=== PATIENT | female | born 2005 | race Caucasian/White ===

== ENCOUNTER → 2024-05-23 | Outpatient (REF) | payer BC ==
[~2024-05-23] MED LIST: ZOFRAN ODT4 MG PO
== END ==
LOC: ZCOL.LAB 17:58
DX: R19.7 Diarrhea, unspecified (principal)

== ENCOUNTER 2024-05-24 21:41 | Emergency (ER) | payer BC ==
[~2024-05-24] VITALS: Ht 167.6 cm; Wt 63.6 kg
[2024-05-24 21:52] VITALS: TEMP 98.9
[2024-05-24] MEDS ORDERED: Ondansetron 4 MG/2 ML VIAL IV ONE (22:30)
[2024-05-24] MEDS ORDERED: NS 1,000 ML IV ONE (22:30)
[2024-05-24 22:42] LABS: BASO % 0.3 % (0.0-2.0); EOS # 0.3 K/mm3 (0.0-0.7); EOS % 2.9 % (0.0-4.0); GRAN % 78.7 % (42.2-75.2); HEMATOCRIT 42.7 % (35.0-45.0); HEMOGLOBIN 15.1 g/dl (12.0-15.0); LYMPH # 1.1 K/mm3 (1.2-3.4); LYMPH % 10.9 % (20.0-51.0); MEAN CELL VOLUME 87 fl (80.0-95.0); MEAN CORPUSCULAR HEMOGLOBIN 31 pg (26-32); MEAN CORPUSCULAR HGB CONC 35 g/dl (33.0-37.0); MONO # 0.7 K/mm3 (0.1-0.6); PLATELET COUNT 264 K/mm3 (130-400); REDCELL DISTRIBUTION WIDTH-CV 11.9 % (11.5-14.5)
[2024-05-24 22:50] LABS: ACETONE,SERUM NEGATIVE
[2024-05-24 22:58] LABS: ALANINE AMINOTRANSFERASE 9 U/L (0-55); ALBUMIN 4.3 g/dL (3.5-5.0); ALKALINE PHOSPHATASE 87 U/L (40-150); ANION GAP 11 mmol/L (7-16); AST,SGOT 16 U/L (5-34); BILIRUBIN,TOTAL 0.9 mg/dL (0.2-1.2); BLOOD UREA NITROGEN 14 mg/dL (8-21); C-REACTIVE PROTEIN 1.76 mg/dL (0.00-0.50); CALCIUM 10.2 mg/dL (8.4-10.2); CHLORIDE 106 mEq/L (98-107); CREATININE, serum 0.82 mg/dL (0.57-1.11); GLUCOSE 158 mg/dL (70-99); POTASSIUM 4.1 mEq/L (3.5-4.5); SODIUM 140 mEq/L (136-145); TOTAL PROTEIN 7.6 g/dl (6.2-8.1)
[2024-05-24] MEDS ORDERED: Home Ondansetron ODT 4 MG #2 ODT/PACK PO ONE (23:45)
[2024-05-25] MEDS ORDERED: ZOFRAN ODT4 MG PO (00:15)
[2024-05-25 01:20] VITALS: BP 127/68; PULSE 75
== END 2024-05-25 01:30 | disposition home or self-care (01) ==
LOC: COL.ER 21:41
PROVIDERS: Emergency Medicine
DX: A04.4 Other intestinal Escherichia coli infections (principal)
CPT/HCPCS: J2405; J7030